=== PATIENT | female | born 1975 | race Caucasian/White ===

== ENCOUNTER 2020-12-25 06:24 | Emergency (ER) | payer MEDICAID ==
[2020-12-25] MEDS ORDERED: Sodium Chloride 0.9% 2.5 ML Syringe FLUSH PRN (06:45)
[2020-12-25] MEDS ORDERED: Ketorolac 15 MG/ML SDV IVPUSH ONE (06:45)
[2020-12-25] MEDS ORDERED: Sodium Chloride 0.9% 10 ML Syringe FLUSH PRN (06:45)
--- NOTE | 2020-12-25 06:54 | EDM.PDOC ---
<Elpidio Hastings - Last Filed: 12/25/20 07:07> ED HPI GENERAL MEDICAL PROBLEM - General Chief Complaint: Chest Pain Stated Complaint: CHEST PAIN Time Seen by Provider: 12/25/20 06:27 - History of Present Illness INITIAL COMMENTS - FREE TEXT/NARRATIVE: HISTORY AND PHYSICAL: History of present illness: This is a 45-year-old female with history significant for hypercholesterolemia, asthma, negative family history for CAD, negative diabetes, negative tobacco, negative prior CAD, negative hypertension, who presents to the ER today complaining of midsternal chest squeezing x1 day. Patient reports that starting approximately noon yesterday she started experiencing discomfort in her chest. Patient reports she had associated episodes of nausea, diaphoresis, shortness of breath and pain to her left shoulder. 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 Patient reports that pain has been constant since noon yesterday and increases with movement of her torso and arms. Patient reports no change in pain with ambulation/exertion, coughing, deep inspiration, meals. Patient reports that the pain is not relieved with rest. Patient reports that the pain is just there all the time for the last 18 hours. Patient denies any recent fevers, shakes, chills, nausea, vomiting, diarrhea, cough, URI symptoms, dysuria, frequency, urgency, abdominal pain. Patient does complain of a rash noted to her left shoulder but she reports the rash itself is not painful nor itchy. She reports that she noticed a rash yesterday. Patient denies any history of hypertension, diabetes, liver, lung, kidney problems. Patient denies any prior abdominal or chest surgeries in the past. Patient denies any tobacco use or drug use. Patient reports he drinks approximately 3-4 beers an evening. Patient is allergic to iodine. Patient denies any prior cardiac work-up. Review of systems: As per history of present illness and below otherwise all systems reviewed and negative. Past medical history: As per history of present illness and as reviewed below otherwise noncontributory. Surgical history: As per history of present illness and as reviewed below otherwise noncontributory. Social history: No reported history of drug or alcohol abuse. Family history: As per history of present illness and as reviewed below otherwise noncontributory. Physical exam: This patient was seen and evaluated during the 2019 SARS-CoV-2 novel coronavirus pandemic period. Community viral transmission is ongoing at time of this encounter and the emergency department is operating under pandemic response procedures. Constitutional: Patient is oriented to person, place, and time. Appears well- developed and well-nourished. No distress. HEENT: Moist mucous membranes Head: Normocephalic and atraumatic Eyes: Right eye exhibits no discharge. Left eye exhibits no discharge. No scleral icterus Neck: Normal range of motion. No tracheal deviation present. Cardiovascular: Normal rate and regular rhythm. Pulmonary: Effort normal, no respiratory distress. No wheezing rales or rhonchi. Abdominal: No distention Musculoskeletal: Normal range of motion. No calf tenderness. No Homans' sign. Neurologic: Alert and oriented to person, place and time. Skin: [place], warm and dry. Psychiatric: Normal mood and affect. Behavior is normal. Judgment and thought content normal. Nursing note and vital signs have been reviewed Patient's ER physical exam is significant for some reproducible tenderness to palpation to her anterior chest wall. Patient does have reproducible chest pain when I ask her to sit up so that I can listen to her lungs. Patient does have some discomfort when she takes deep breath in. Diagnostics: EKG: As interpreted by ER physician: Venkata: Nonspecific ST-T wave abnormalities Normal axis No evidence of ST elevation [place] Normal sinus rhythm heart rate of 94 Chest Xray: Normal cardiac silhouette No infiltrates or effusions identified. No PTX No evidence of acute bony fracture. As interpreted by ER MD: Venkata CBC, CMP, troponin, D-dimer. Therapeutics: Toradol 15 mg IV Assessment and plan: This is a 45-year-old female with a history significant for hypercholesterolemia who presents ER today with atypical chest pain that started yesterday at noon time. Patient's presentation is not highly consistent with cardiac origin of her chest pain. Patient will have EKG which is unremarkable. Patient will have chest x-ray as well as cardiac labs drawn. 7 AM: Patient will be signed out to oncoming physician for final disposition. Heart Score: History: 1 (2, Highly Suspicious; 1, Moderate Suspicious; 0: Slightly Suspicious) EK (2, Significant ST depression; 1: Non specific repolarization disturbance; 0, Normal) Age: 1 (2, = 65; 1: 45-65; 0, =45) Risk factors: 1 (2, =3 risk factors or history of atherosclerotic disease; 1, 1-2 risk factors; 0, no risk factors) Risk Factors include hypercholesterolemia, HTN, DM, smoking, family history, obesity Troponin: P (2, (=3x normal limit; 1, 1-3 x normal limit; 0 = normal limit) Total Heart Score: 3P Management Scores 0-3: 0.9-1.7% risk of adverse cardiac event. In the HEART Score study, these patients were discharged (0.99% in the retrospective study, 1.7% in the prospective study) Scores 4-6: 12-16.6% risk of adverse cardiac event. In the HEART Score study, these patients were admitted to the hospital. (11.6% retrospective, 16.6% prospective) Scores =7: 50-65% risk of adverse cardiac event. In the HEART Score study, these patients were candidates for early invasive measures. (65.2% retrospective, 50.1% prospective) Definitive disposition and diagnosis as appropriate pending reevaluation and review of above. chest Pain Score (Numeric/FACES): 10 - Related Data Allergies Allergy/AdvReac Type Severity Reaction Status Date / Time povidone-iodine Allergy Rash Verified 12/25/20 06:34 [From Betadine] soap [From Betadine] Allergy Rash Verified 12/25/20 06:34 strawberry [[place]] Allergy Respiratory Verified 12/25/20 06:34 Distress Home Meds: Home Meds Albuterol Sulfate [Albuterol Sulfate HFA] 18 gm IH Q4H PRN #1 [id number] 02/04/15 [Rx] Phentermine HCl PO DAILY 12/25/20 [History] atorvaSTATin [Lipitor] 10 mg PO DAILY 12/25/20 [History] Past Medical History Cardiovascular History: Reports: High Cholesterol Respiratory History: Reports: Asthma 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 - Infectious Disease History Infectious Disease History: Reports: Novel Coronavirus Social & Family History - Tobacco Use Tobacco Use Status *Q: Never Tobacco User - Alcohol Use Days Per Week of Alcohol Use: 7 Number of Drinks Per Day: 4 Total Drinks Per Week: 28 - Recreational Drug Use Recreational Drug Use: No ED ROS GENERAL - Review of Systems Review Of Systems: See Below ED EXAM, GENERAL - Physical Exam Exam: See Below Departure - Departure Disposition: Home, Self-Care 01 Clinical Impression: Chest pain - Discharge Information Instructions: Nonspecific Chest Pain, Adult Referrals: Windy Hunt NP [Primary Care Provider] - 3 Days Forms: ED Department Discharge Additional Instructions: We were not able to find a provable cause of your chest pain today. Your EKG and other heart tests were normal. Because of this and other factors in your history we can calculate the odds that this pain is coming from blocked arteries in your heart as less than 1.7%. The labs evaluating your liver and pancreas as well as your cell counts were also normal. Your chest x-ray was normal. Because your screening test for blood clots was abnormal you had a CT scan of your chest. This showed that you do NOT have any blood clots in your lungs and it show no signs of infection or other disease process in your lung tissue. I recommend that you try and rest over the weekend. Please be sure to follow-up with your primary care doctor. If your symptoms worsen, or you develop any new symptoms that concern you, then please call your doctor right away or return to the ER. The following information is given to patients seen in the emergency department who are being discharged to home. This information is to outline your options for follow-up care. We provide all patients seen in our emergency department with a follow-up referral. The need for follow-up, as well as the timing and circumstances, are variable depending upon the specifics of your emergency department visit. If you don't have a primary care physician on staff, we will provide you with a referral. We always advise you to contact your personal physician following an emergency department visit to inform them of the circumstance of the visit and for follow-up with them and/or the need for any referrals to a consulting specialist. The emergency department will also refer you to a specialist when appropriate. This referral assures that you have the opportunity for follow-up care with a specialist. All of these measure are taken in an effort to provide you with optimal care, which includes your follow-up. Under all circumstances we always encourage you to contact your private physician who remains a resource for coordinating your care. When calling for follow-up care, please make the office aware that this follow-up is from your recent emergency room visit. If for any reason you are refused follow-up, please contact the [facility] Emergency Department at and asked to speak to the emergency department charge nurse. Sepsis Event Note (ED) - Evaluation Sepsis Screening Result: No Definite Risk <Clemente Javier - Last Filed: 12/25/20 10:37> Course - Vital Signs Last Recorded V/S: Last Vital Signs Temp 98 F 12/25/20 06:36 Pulse 89 12/25/20 10:10 Resp 18 12/25/20 07:28 BP 129/83 12/25/20 10:10 Pulse Ox 93 L 12/25/20 10:10 - Orders/Labs/Meds Orders: Active Orders 24 hr Category Date Time Status EKG Documentation Completion [RC] STAT Care 12/25/20 06:50 Active Lactated Ringers [Ringers, Lactated] 1,000 ml Med 12/25/20 10:00 Active IV .BOLUS Sodium Chloride 0.9% [Saline Flush] Med 12/25/20 06:45 Active 10 ml FLUSH ASDIRECTED PRN Sodium Chloride 0.9% [Saline Flush] Med 12/25/20 06:45 Active 2.5 ml FLUSH ASDIRECTED PRN Saline Lock Insert [OM.PC] Stat Oth 12/25/20 06:46 Ordered Medication Orders Lactated Ringer's (Ringers, Lactated) 1,000 mls @ 999 mls/hr IV .BOLUS FREDDY Last Admin: 12/25/20 09:51 Dose: 999 mls/hr Documented by: ELLIOT Sodium Chloride (Sodium Chloride 0.9% 10 Ml Syringe) 10 ml FLUSH ASDIRECTED PRN PRN Reason: Keep Vein Open Last Admin: 12/25/20 06:53 Dose: 10 ml Documented by: RAMONA Sodium Chloride (Sodium Chloride 0.9% 2.5 Ml Syringe) 2.5 ml FLUSH ASDIRECTED PRN PRN Reason: Keep Vein Open Last Admin: 12/25/20 06:54 Dose: 2.5 ml Documented by: RAMONA Labs: Laboratory Tests 12/25/20 12/25/20 12/25/20 Range/Units 06:28 06:28 06:28 WBC 6.67 (4.0-11.0) K/uL RBC 4.14 L (4.30-5.90) M/uL Hgb 13.8 (12.0-16.0) g/dL Hct 38.7 (36.0-46.0) % MCV 93.5 (80.0-98.0) fL MCH 33.3 H (27.0-32.0) pg MCHC 35.7 (31.0-37.0) g/dL RDW Std Deviation 42.4 (28.0-62.0) fl RDW Coeff of Barb 13 (11.0-15.0) % Plt Count 341 (150-400) K/uL MPV 9.40 (7.40-12.00) fL Neut % (Auto) 25.9 L (48.0-80.0) % Lymph % (Auto) 62.2 H (16.0-40.0) % [place] % (Auto) 7.9 (0.0-15.0) % Eos % (Auto) 3.1 (0.0-7.0) % Baso % (Auto) 0.9 (0.0-1.5) % Neut # (Auto) 1.7 (1.4-5.7) K/uL Lymph # (Auto) 4.2 H (0.6-2.4) K/uL [place] # (Auto) 0.5 (0.0-0.8) K/uL Eos # (Auto) 0.2 (0.0-0.7) K/uL Baso # (Auto) 0.1 (0.0-0.1) K/uL Nucleated RBC % 0.0 /100WBC Nucleated RBCs # 0 K/uL D-Dimer, Quantitative 0.58 H (0.0-0.50) mg/L FEU Sodium 142 (136-145) mmol/L Potassium 3.5 (3.5-5.1) mmol/L Chloride 107 (98-107) mmol/L Carbon Dioxide 24.0 (21.0-32.0) mmol/L BUN 12 (7.0-18.0) mg/dL Creatinine 0.9 (0.6-1.0) mg/dL Est Cr Clr Drug Dosing 61.12 mL/min Estimated GFR (MDRD) > 60.0 ml/min Glucose 111 H (74-106) mg/dL Calcium 8.3 L (8.5-10.1) mg/dL Total Bilirubin 0.9 (0.2-1.0) mg/dL AST 11 L (15-37) IU/L ALT 22 (14-63) IU/L Alkaline Phosphatase 69 (46-116) U/L Troponin I < 0.050 (0.000-0.056) ng/mL Total Protein 7.3 (6.4-8.2) g/dL Albumin 3.6 (3.4-5.0) g/dL Globulin 3.7 (2.6-4.0) g/dL Albumin/Globulin Ratio 1.0 (0.9-1.6) Lipase (73-393) U/L 12/25/20 12/25/20 Range/Units 08:59 08:59 WBC (4.0-11.0) K/uL RBC (4.30-5.90) M/uL Hgb (12.0-16.0) g/dL Hct (36.0-46.0) % MCV (80.0-98.0) fL MCH (27.0-32.0) pg MCHC (31.0-37.0) g/dL RDW Std Deviation (28.0-62.0) fl RDW Coeff of Barb (11.0-15.0) % Plt Count (150-400) K/uL MPV (7.40-12.00) fL Neut % (Auto) (48.0-80.0) % Lymph % (Auto) (16.0-40.0) % [place] % (Auto) (0.0-15.0) % Eos % (Auto) (0.0-7.0) % Baso % (Auto) (0.0-1.5) % Neut # (Auto) (1.4-5.7) K/uL Lymph # (Auto) (0.6-2.4) K/uL [place] # (Auto) (0.0-0.8) K/uL Eos # (Auto) (0.0-0.7) K/uL Baso # (Auto) (0.0-0.1) K/uL Nucleated RBC % /100WBC Nucleated RBCs # K/uL D-Dimer, Quantitative (0.0-0.50) mg/L FEU Sodium (136-145) mmol/L Potassium (3.5-5.1) mmol/L Chloride (98-107) mmol/L Carbon Dioxide (21.0-32.0) mmol/L BUN (7.0-18.0) mg/dL Creatinine (0.6-1.0) mg/dL Est Cr Clr Drug Dosing mL/min Estimated GFR (MDRD) ml/min Glucose (74-106) mg/dL Calcium (8.5-10.1) mg/dL Total Bilirubin (0.2-1.0) mg/dL AST (15-37) IU/L ALT (14-63) IU/L Alkaline Phosphatase (46-116) U/L Troponin I < 0.050 (0.000-0.056) ng/mL Total Protein (6.4-8.2) g/dL Albumin (3.4-5.0) g/dL Globulin (2.6-4.0) g/dL Albumin/Globulin Ratio (0.9-1.6) Lipase 85 (73-393) U/L Meds: Medications Generic Name Dose Route Start Last Admin Trade Name Freq PRN Reason Stop Dose Admin Lactated Ringer's 1,000 mls @ 999 mls/hr 12/25/20 10:00 12/25/20 09:51 Ringers, Lactated IV 999 mls/hr .BOLUS FREDDY Administration Sodium Chloride 10 ml 12/25/20 06:45 12/25/20 06:53 Sodium Chloride 0.9% 10 Ml Syringe FLUSH 10 ml ASDIRECTED PRN Administration Keep Vein Open Sodium Chloride 2.5 ml 12/25/20 06:45 12/25/20 06:54 Sodium Chloride 0.9% 2.5 Ml Syringe FLUSH 2.5 ml ASDIRECTED PRN Administration Keep Vein Open Discontinued Medications Generic Name Dose Route Start Last Admin Trade Name Freq PRN Reason Stop Dose Admin Famotidine 20 mg 12/25/20 08:53 12/25/20 09:10 Famotidine 20 Mg Tab PO 12/25/20 08:54 20 mg ONETIME ONE Administration Iopamidol 69 ml 12/25/20 08:27 12/25/20 08:28 Iopamidol 755 Mg/Ml 500 Ml Multipack Bottle IVPUSH 12/25/20 08:28 69 ml ONETIME ONE Administration Ketorolac Tromethamine 15 mg 12/25/20 06:45 12/25/20 06:54 Ketorolac 15 Mg/Ml Sdv IVPUSH 12/25/20 06:46 15 mg ONETIME ONE Administration Ketorolac Tromethamine 15 mg 12/25/20 08:53 12/25/20 09:04 Ketorolac 30 Mg/Ml Sdv IVPUSH 12/25/20 08:54 15 mg ONETIME ONE Administration Morphine Sulfate 4 mg 12/25/20 07:31 12/25/20 07:41 Morphine 4 Mg/Ml Syringe IVPUSH 12/25/20 07:32 4 mg ONETIME ONE Administration Ondansetron HCl 4 mg 12/25/20 07:31 12/25/20 07:38 Ondansetron 4 Mg/2 Ml Sdv IVPUSH 12/25/20 07:32 4 mg ONETIME ONE Administration Ondansetron HCl 4 mg 12/25/20 08:49 12/25/20 09:02 Ondansetron 4 Mg/2 Ml Sdv IVPUSH 12/25/20 08:50 4 mg ONETIME ONE Administration Prochlorperazine Edisylate 10 mg 12/25/20 09:46 12/25/20 09:51 Prochlorperazine 10 Mg/2 Ml Sdv IVPUSH 12/25/20 09:47 10 mg ONETIME ONE Administration Departure - Departure Time of Disposition: 10:37 Condition: Good - Discharge Information *PRESCRIPTION DRUG MONITORING PROGRAM REVIEWED*: Not Applicable *COPY OF PRESCRIPTION DRUG MONITORING REPORT IN PATIENT JOSE LUIS: Not Applicable Sepsis Event Note (ED) - Focused Exam Vital Signs: Vital Signs Temp Pulse Resp BP Pulse Ox 12/25/20 10:10 89 129/83 93 L 12/25/20 09:40 82 127/84 95 12/25/20 09:25 83 128/84 93 L 12/25/20 09:10 87 133/93 H 91 L 12/25/20 08:40 90 131/85 92 L 12/25/20 07:55 96 124/69 94 L 12/25/20 07:40 94 117/70 94 L 12/25/20 07:28 99 18 114/69 93 L 12/25/20 06:36 98 F 96 16 117/77 96 - My Orders Last 24 Hours: My Active Orders 12/25/20 10:00 Lactated Ringers [Ringers, Lactated] 1,000 ml IV .BOLUS - Assessment/Plan Last 24 Hours: My Active Orders 12/25/20 10:00 Lactated Ringers [Ringers, Lactated] 1,000 ml IV .BOLUS Assessment:: Pt received in sign out from Dr. Hastings at 0700. Pt's pain persists at 8/10 and morphine/zofran added. D-Dimer abnormal and CTPA added as well. 0900: CTPA is negative for PE and other acute processes. Pt with persistent pain and emesis x 1 after PO. 2nd trop pending, pepcid, zofran and additional toradol ordered for sx as well. 0947: 2nd trop is negative. Pt with persistent emesis and chest pressure. Pt took 2 puffs of her albuterol inhaler without change in symptoms. Compazine and IVF added given dry mucus membranes and active emesis. Lipase added to blood work. Pt con't to deny any abd pain and given this PUD and hepatobiliary pathology is felt unlikely. WBC is normal no indication of appendicitis or diverticulitis. No indication for abd imaging at this point. Pt's initial presenting complaint of chest heaviness with anterior chest wall tenderness does not suggest aortic dissection. 1036: Pt now tolerating PO s/p compazine. VS remain good, given extensive negative work up admission not felt indicated at this point. Extensive discussion regarding unclear cause of sx was discussed and understood. Patient will f/u with her PCP.
--- NOTE | 2020-12-25 07:08 | CR ---
INDICATION: Chest pain. TECHNIQUE: Chest 1 view. COMPARISON: None. FINDINGS: No focal consolidation, pleural effusion, or pneumothorax. Normal heart size and pulmonary vascularity. The bones are unremarkable. IMPRESSION: No acute cardiopulmonary findings. Dictated by Netta Owusu MD @ 12/25/2020 7:07:[address] Netta Owusu @ Dec 25 2020 7:07AM
[2020-12-25 07:13] LABS: BLOOD UREA NITROGEN,BUN 12 mg/dL (7.0-18.0); CHLORIDE,CL 107 mmol/L (98-107); GLUCOSE RANDOM 111 mg/dL (74-106); POTASSIUM,K 3.5 mmol/L (3.5-5.1); SODIUM,NA 142 mmol/L (136-145)
[2020-12-25] MEDS ORDERED: Morphine 4 MG/ML Syringe IVPUSH ONE (07:31)
[2020-12-25] MEDS ORDERED: Ondansetron 4 MG/2 ML SDV IVPUSH ONE ×2 (07:31→08:49)
[2020-12-25] MEDS ORDERED: Iopamidol 755 MG/ML 500 ML Multipack Bottle IVPUSH ONE (08:27)
--- NOTE | 2020-12-25 08:44 | CT ---
INDICATION: Chest pain for 1 day. Elevated D-dimer. Evaluate for pulmonary embolus. TECHNIQUE: CT chest angiogram performed after IV injection of 69 mL of [id number]. FINDINGS: No pulmonary embolus. Mild atelectasis or scarring in the lungs. Tiny nodule in the right upper lobe laterally should be benign. Minimal platelike atelectasis or scarring in the lungs. Small calcifications or densely calcified small lesions in the in right thyroid likely benign. Moderately distended stomach. Remainder negative. IMPRESSION: 1. No acute disease in the chest including no evidence of pulmonary embolus. 2. Few densely calcified nonspecific lesions in the right thyroid. 3. Tiny benign nodule right lung laterally. Other findings as above. Please note that all CT scans at this facility use dose modulation, iterative reconstruction, and/or weight-based dosing when appropriate to reduce radiation dose to as low as reasonably achievable. Dictated by Christofer Antoine MD @ 12/25/2020 8:43:[address] Christofer Antoine @ Dec 25 2020 8:43AM
[2020-12-25] MEDS ORDERED: Ketorolac 30 MG/ML SDV IVPUSH ONE (08:53)
[2020-12-25] MEDS ORDERED: Famotidine 20 MG Tab PO ONE (08:53)
[2020-12-25] MEDS ORDERED: Prochlorperazine 10 MG/2 ML SDV IVPUSH ONE (09:46)
[2020-12-25] MEDS ORDERED: Lactated Ringers 1,000 ML IV SCH (10:00)
[2020-12-25 10:53] VITALS: BP 126/82; PULSE 92
== END 2020-12-25 10:56 | disposition home or self-care (01) ==
LOC: MW.ED 06:24
DX: R07.2 Precordial pain (principal); E78.00 Pure hypercholesterolemia, unspecified; J45.909 Unspecified asthma, uncomplicated; Z91.048 Other nonmedicinal substance allergy status; Z91.018 Allergy to other foods; Z79.899 Other long term (current) drug therapy
CPT/HCPCS: 36415; 71045; 71275; 80053; 83690; 84484; 85025; 85379; 93005; 96374; 96375; 96376; 99285; A9270; J0780; J1885; J2270; J2405; J7120; Q9967; 99284

== ENCOUNTER 2021-02-05 09:28 | Emergency (ER) | payer OTHER, MEDICAID ==
[2021-02-05] MEDS ORDERED: predniSONE 20 MG Tab PO ONE (10:11)
[2021-02-05] MEDS ORDERED: Orphenadrine 60 MG/2 ML Inj IM ONE (10:11)
[2021-02-05] MEDS ORDERED: Ketorolac 60 MG/2 ML SDV IM ONE (10:11)
--- NOTE | 2021-02-05 10:17 | EDM.PDOC ---
ED HPI GENERAL MEDICAL PROBLEM - General Chief Complaint: Back Pain or Injury Stated Complaint: BACKPAIN,HIP PAIN Time Seen by Provider: 02/05/21 09:51 Source of Information: Reports: Patient History Limitations: Reports: No Limitations - History of Present Illness INITIAL COMMENTS - FREE TEXT/NARRATIVE: HISTORY AND PHYSICAL: History of present illness: Patient is a 45-year-old female who presents to the emergency room with complaints of lumbar back pain that radiates into both glutes and down the right leg ending in her calf muscle x 5 days. She states while at work she is using a Alex lift when the pain started, has been doing a lot of back activity with her [employer] work. After the pain started she was seen at occupational therapy and had a lumbar x-ray. She was given a IM shot of Toradol and steroid and felt better for about 1 to 2 days but once she returned to work the pain returned and worsened in intensity. She denies any injury, trauma or falls. Denies any numbness, tingling, saddle paresthesias or weakness. No urinary or fecal incontinence. Patient denies any fever, chills, headache, change in vision, syncope or near syncope. Denies any chest pain, back pain, shortness of breath or cough. Denies any abdominal pain, nausea, vomiting, diarrhea, constipation or dysuria. Has not noted any blood in urine or stool. Patient has been eating and drinking appropriately. Review of systems: As per history of present illness and below otherwise all systems reviewed and negative. Past medical history: As per history of present illness and as reviewed below otherwise noncontributory. Surgical history: As per history of present illness and as reviewed below otherwise noncontributory. Social history: See social history for further information Family history: As per history of present illness and as reviewed below otherwise noncontributory. Physical exam: General: Well developed and well nourished. Alert and orientated x 3. Nontoxic in appearance and in no acute distress. Vital signs are stable and have been reviewed by me. Nursing notes were reviewed. HEENT: Atraumatic, normocephalic, pupils equal and reactive bilaterally, negative for conjunctival pallor or scleral icterus, mucous membranes moist, TMs normal bilaterally, throat clear, neck supple, nontender, trachea midline. No drooling or trismus noted. No meningeal signs. No hot potato voice noted. Lungs: Clear to auscultation bilaterally. No wheezes, rales, or rhonchi. Chest nontender. Normal work of breathing, no accessory muscles used. Heart: S1S2, regular rate and rhythm without overt murmur, gallops, or rubs. No JVD. No peripheral edema Abdomen: Soft, nondistended, nontender. Normoactive bowel sounds. Negative for masses or costovertebral tenderness. Skin: Intact, warm, dry. No lesions or rashes noted. Hematologic: No petechiae or purpra. Mucosa appropriate color and normal nail bed color and refill. C-spine/Back: No pinpoint vertebral tenderness upon palpation. No crepitus, step-offs or obvious deformities. Patient is ambulatory into the emergency room without difficulty or deficit. Able to rock back on heels and walk on toes. Denies any urinary or fecal incontinence. Denies any numbness, tingling or saddle paresthesia. No concerns of serious infection, fracture or cord compression, or cauda equina syndrome. Deep tendon reflexes brisk bilaterally. Extremities: Atraumatic, moves all extremities per self without difficulty or deficits, negative for cords or calf pain. Neurovascular unremarkable. Neuro: Awake, alert, oriented. Cranial nerves II through XII unremarkable. Cerebellum unremarkable. Motor and sensory unremarkable throughout. Exam nonfocal. Psychiatric: Mood and affect are appropriate. Normal thought process. Answering questions appropriately. Notes: *This patient was seen and evaluated during the 2019 SARS-CoV-2 novel coronavirus pandemic period. Community viral transmission is ongoing at time of this encounter and the emergency department is operating under pandemic response procedures. Patient is a 45-year-old female who presents to the emergency room with complaints of back pain with sciatica down the right side. She did previously have x-rays at the occupational health office which was normal. She has not had any injury, trauma or falls. She is fully ambulatory without difficulty or deficits. She was given an IM injection of Toradol and steroid while at the clinic but not sent home with any medications. She states initially after the IM injection she felt improved but as soon as she started physical activity again the pain returned and has worsened as she has been encouraged to continue working. At this time I do not feel any additional imaging is warranted. This does appear muscular/sciatic in nature. She is agreeable to Toradol and Norflex IM while here. Patient feels improved I have talked with the patient about today's findings, in addition to providing specific details for plan of care. Reassessment at the time of disposition demonstrates that the patient is in no acute distress. The patient is stable for discharge, counseling was provided and we discussed in great detail signs and symptoms that would prompt them to return to the Emergency Department. Medication, follow up and supportive care measures were reviewed and discussed. Voices understanding and is agreeable to plan of care. Denies any further questions or concerns at this time. Diagnostics: None Therapeutics: Norflex, Toradol, prednisone Prescription: Diclofenac, Flexeril, prednisone Impression: Back pain with sciatica, right Plan: 1. The medication you received today does cause drowsiness, so do not drive for the remaining day 2. When resting please lay on a flat firm surface. Limit your immobility to prevent muscle stiffness. Get up to ambulate/move around/gentle stretching multiple times throughout the day. May alternate heat and ice to the painful areas 3. Tylenol as needed for back pain. Otherwise take the prescribed Flexeril and diclofenac as directed. Diclofenac is an anti-inflammatory so do not take any additional NSAIDs with this medication, such as ibuprofen or Aleve. Flexeril as a muscle relaxant, this medication may cause drowsiness a do not take it will driving her needing to be functioning outside of the house. 4. Please follow-up with your primary care provider as we discussed. If your symptoms should worsen, new symptoms develop or any of the signs and symptoms we discussed should arise please return to the emergency room or call 911 (if needed). Definitive disposition and diagnosis as appropriate pending reevaluation and review of above. Back Pain Score (Numeric/FACES): 6 - Related Data Allergies Allergy/AdvReac Type Severity Reaction Status Date / Time hydromorphone [From Dilaudid] Allergy Other Verified 02/05/21 10:13 povidone-iodine Allergy Rash Verified 02/05/21 10:13 [From Betadine] soap [From Betadine] Allergy Rash Verified 02/05/21 10:13 strawberry [Rhame] Allergy Respiratory Verified 02/05/21 10:13 Distress Home Meds: Home Meds Albuterol Sulfate [Albuterol Sulfate HFA] 18 gm IH Q4H PRN #1 [id number] 02/04/15 [Rx] atorvaSTATin [Lipitor] 10 mg PO DAILY 12/25/20 [History] Cyclobenzaprine [Flexeril] 10 mg PO TID PRN #21 tab 02/05/21 [Rx] Diclofenac Sodium [Voltaren] 75 mg PO BIDMEALS PRN #30 tab.cr 02/05/21 [Rx] buPROPion [Wellbutrin] 75 mg PO DAILY 02/05/21 [History] predniSONE [Prednisone] 40 mg PO DAILY 4 Days #8 tablet 02/05/21 [Rx] Past Medical History Cardiovascular History: Reports: High Cholesterol Respiratory History: Reports: Asthma Other [employer] History: tubal - Infectious Disease History Infectious Disease History: Reports: Novel Coronavirus ED ROS GENERAL - Review of Systems Review Of Systems: Comprehensive ROS is negative, except as noted in HPI. ED EXAM, GENERAL - Physical Exam Exam: See Below (See dictation) Course - Vital Signs Last Recorded V/S: Last Vital Signs Temp 98 F 02/05/21 10:15 Pulse 75 02/05/21 10:15 Resp 16 02/05/21 10:15 BP 121/89 02/05/21 10:15 Pulse Ox 96 02/05/21 10:15 - Orders/Labs/Meds Meds: Medications Discontinued Medications Generic Name Dose Route Start Last Admin Trade Name Freq PRN Reason Stop Dose Admin Ketorolac Tromethamine 60 mg 02/05/21 10:11 02/05/21 10:46 Ketorolac 60 Mg/2 Ml Sdv IM 02/05/21 10:12 60 mg ONETIME ONE Administration Orphenadrine Citrate 60 mg 02/05/21 10:11 02/05/21 10:48 Orphenadrine 60 Mg/2 Ml Inj IM 02/05/21 10:12 60 mg ONETIME ONE Administration Prednisone 40 mg 02/05/21 10:11 02/05/21 10:46 Prednisone 20 Mg Tab PO 02/05/21 10:12 40 mg ONETIME ONE Administration Departure - Departure Time of Disposition: 10:51 Disposition: Home, Self-Care 01 Clinical Impression: Back pain with sciatica - Discharge Information Prescriptions: Cyclobenzaprine [Flexeril] 10 mg PO TID PRN #21 tab PRN Reason: Muscle Spasm predniSONE [Prednisone] 40 mg PO DAILY 4 Days #8 tablet Diclofenac Sodium [Voltaren] 75 mg PO BIDMEALS PRN #30 tab.cr PRN Reason: Pain Instructions: Sciatica, [id number] Referrals: Giovani Richardson MD [Primary Care Provider] - Forms: ED Department Discharge Additional Instructions: The following information is given to patients seen in the emergency department who are being discharged to home. This information is to outline your options for follow-up care. We provide all patients seen in our emergency department with a follow-up referral. The need for follow-up, as well as the timing and circumstances, are variable depending upon the specifics of your emergency department visit. If you don't have a primary care physician on staff, we will provide you with a referral. We always advise you to contact your personal physician following an emergency department visit to inform them of the circumstance of the visit and for follow-up with them and/or the need for any referrals to a consulting specialist. The emergency department will also refer you to a specialist when appropriate. T his referral assures that you have the opportunity for follow-up care with a specialist. All of these measure are taken in an effort to provide you with optimal care, which includes your follow-up. Under all circumstances we always encourage you to contact your private physician who remains a resource for coordinating your care. When calling for follow-up care, please make the office aware that this follow-up is from your recent emergency room visit. If for any reason you are refused follow-up, please contact the [facility] Emergency Department at and asked to speak to the emergency department charge nurse. [facility] [address] [place] [id number] [address] Thank you for choosing the [facility] emergency department in [place] for your medical needs today. It was a pleasure caring for you. Today you were seen in the emergency department for back pain. 1. The medication you received today does cause drowsiness, so do not drive for the remaining day 2. When resting please lay on a flat firm surface. Limit your immobility to prevent muscle stiffness. Get up to ambulate/move around/gentle stretching multiple times throughout the day. May alternate heat and ice to the painful areas 3. Tylenol as needed for back pain. Otherwise take the prescribed Flexeril and diclofenac as directed. Diclofenac is an anti-inflammatory so do not take any additional NSAIDs with this medication, such as ibuprofen or Aleve. Flexeril as a muscle relaxant, this medication may cause drowsiness a do not take it will driving her needing to be functioning outside of the house. 4. Please follow-up with your primary care provider as we discussed. If your symptoms should worsen, new symptoms develop or any of the signs and symptoms we discussed should arise please return to the emergency room or call 911 (if needed). Sepsis Event Note (ED) - Focused Exam Vital Signs: Vital Signs Temp Pulse Resp BP Pulse Ox 02/05/21 10:15 98 F 75 16 121/89 96
[2021-02-05 11:11] VITALS: BP 123/87; PULSE 84
== END 2021-02-05 11:12 | disposition home or self-care (01) ==
LOC: MW.ED 09:28
DX: M54.41 Lumbago with sciatica, right side (principal); E78.00 Pure hypercholesterolemia, unspecified; Z88.5 Allergy status to narcotic agent; Z91.018 Allergy to other foods; Z91.048 Other nonmedicinal substance allergy status; Z88.8 Allergy status to other drugs, medicaments and biological substances; Z79.899 Other long term (current) drug therapy
CPT/HCPCS: 96372; 99283; A9270; J1885; J2360

== ENCOUNTER 2021-06-15 05:36 | Emergency (ER) | payer MEDICAID ==
[2021-06-15] MEDS ORDERED: Ketorolac 30 MG/ML SDV IM STA (06:02)
[2021-06-15] MEDS ORDERED: Sodium Chloride 0.9% 10 ML Syringe FLUSH PRN ×2 (06:03→06:25)
--- NOTE | 2021-06-15 06:09 | EDM.PDOC ---
ED HPI GENERAL MEDICAL PROBLEM - General Chief Complaint: Lower Extremity Injury/Pain Stated Complaint: LEFT HIP AND LEG PAIN RADIATING TO BACK Time Seen by Provider: 06/15/21 06:03 - History of Present Illness INITIAL COMMENTS - FREE TEXT/NARRATIVE: History of present illness: [] The patient was awakened at 1 AM with severe pain in the left lower quadrant. It is in the extreme left lower quadrant pelvis and now radiates to her left flank. Because her to rock 'n' roll but she says it hurts worse when she moves. It is severe and sharp and constant and unassociated with any nausea vomiting fever chills trouble with urination or trouble with bowels. The patient has no diarrhea. The patient had an episode like this before and the last one was a kidney stone. The patient has had a tubal ligation and does not think she can be . Her periods are so irregular she cannot say where she is on her cycle. Review of systems: As per history of present illness and below otherwise all systems reviewed and negative. Past medical history: As per history of present illness and as reviewed below otherwise noncontributory. Surgical history: As per history of present illness and as reviewed below otherwise noncont ributory. Social history: No reported history of drug or alcohol abuse. Family history: As per history of present illness and as reviewed below otherwise noncontributory. Physical exam: Constitutional - well developed, well-nourished and in no acute distress HEENT - normocephalic, no evidence of trauma - external nose and mouth normal - no mass in neck and no JVD - mucosae moist EYES - full EOM, PERRL, no icterus - no evidence of inflammation, injection, or drainage Respiratory - no respiratory distress, equal bilateral expansion GI - abdomen - tender extreme LLQ but not as impressive as her pain is - no mass, organomegaly - no guard, rebound or referred tenderness Bimanual exam - No localized tenderness in uterus or adnexae and no mass except superficial fullnes in anterior wall of the lower vagina which is not tender or fluctuant. Musculoskeletal no gross deformity of long bones or joints - no tenderness, swelling or edema Neurologic - Alert and oriented times four - CN II-XII grossly intact - motor sensory and coordination symmetrically normal Psychiatric - appropriate mood and affect with normal thought content Hematologic - No petechiae or purpura - mucosa appropriate color and sclera not pale - normal nail bed color and refill Integument - no rash or evidence of trauma - normal turgor Diagnostics: [] Therapeutics: [] Impression: [] Plan: [] Definitive disposition and diagnosis as appropriate pending reevaluation and review of above. left hip Pain Score (Numeric/FACES): 10 - Related Data Allergies Allergy/AdvReac Type Severity Reaction Status Date / Time povidone-iodine Allergy Rash Verified 06/15/21 05:46 [From Betadine] soap [From Betadine] Allergy Rash Verified 06/15/21 05:46 strawberry [Enigma] Allergy Respiratory Verified 06/15/21 05:46 Distress Home Meds: Home Meds Albuterol Sulfate [Albuterol Sulfate HFA] 18 gm IH Q4H PRN #1 [id number].aer.[id number] 02/04/15 [Rx] atorvaSTATin [Lipitor] 10 mg PO DAILY 12/25/20 [History] Cyclobenzaprine [Flexeril] 10 mg PO TID PRN #21 tab 02/05/21 [Rx] Diclofenac Sodium [Voltaren] 75 mg PO BIDMEALS PRN #30 tab.cr 02/05/21 [Rx] buPROPion [Wellbutrin] 75 mg PO DAILY 02/05/21 [History] predniSONE [Prednisone] 40 mg PO DAILY 4 Days #8 tablet 02/05/21 [Rx] Acetaminophen/oxyCODONE [Percocet 325-10 MG] 1 - 2 tab PO Q6H PRN #20 tab 06/15/21 [Rx] diazePAM [Valium] 5 mg PO TID PRN #15 tab 06/15/21 [Rx] Past Medical History Cardiovascular History: Reports: High Cholesterol Respiratory History: Reports: Asthma Gastrointestinal History: Reports: None Genitourinary History: Reports: None PLANER SETTER History: Reports: None Other PLANER SETTER History: tubal Musculoskeletal History: Reports: None Neurological History: Reports: Migraines Psychiatric History: Reports: None Endocrine/Metabolic History: Reports: None Insulin Pump Model and Quarter Seamer: N/A Hematologic History: Reports: None Immunologic History: Reports: None Oncologic (Cancer) History: Reports: None Dermatologic History: Reports: None - Infectious Disease History Infectious Disease History: Reports: Novel Coronavirus - Past Surgical History Female Surgical History: Reports: Tubal Ligation Musculoskeletal Surgical History: Reports: ORIF, Other (See Below) Other Musculoskeletal Surgeries/Procedures:: left arm surgery. left hip bone grafting Social & Family History - Caffeine Use Caffeine Use: Reports: None - Recreational Drug Use Recreational Drug Use: No ED ROS GENERAL - Review of Systems Review Of Systems: Comprehensive ROS is negative, except as noted in HPI. ED EXAM, GENERAL - Physical Exam Exam: See Below Free Text/Narrative:: My physical exam is in the HPI Course - Vital Signs Last Recorded V/S: Last Vital Signs Temp 36.6 C 06/15/21 05:45 Pulse 74 06/15/21 09:44 Resp 15 06/15/21 09:44 BP 136/94 H 06/15/21 09:44 Pulse Ox 97 06/15/21 09:44 - Orders/Labs/Meds Orders: Active Orders 24 hr Category Date Time Status Communication Order [RC] STAT Care 06/15/21 06:08 Active Retroperitoneal Ltd [US] Stat Exams 06/15/21 10:21 Taken Sodium Chloride 0.9% [Saline Flush] Med 06/15/21 06:03 Active 10 ml FLUSH ASDIRECTED PRN Sodium Chloride 0.9% [Saline Flush] Med 06/15/21 06:25 Active 10 ml FLUSH ASDIRECTED PRN Sodium Chloride 0.9% [Saline Flush] Med 06/15/21 06:03 Active 2.5 ml FLUSH ASDIRECTED PRN Sodium Chloride 0.9% [Saline Flush] Med 06/15/21 06:25 Active 2.5 ml FLUSH ASDIRECTED PRN Saline Lock Insert [OM.PC] Stat Oth 06/15/21 06:03 Ordered Saline Lock Insert [OM.PC] Stat Oth 06/15/21 06:25 Ordered Medication Orders Sodium Chloride (Sodium Chloride 0.9% 10 Ml Syringe) 10 ml FLUSH ASDIRECTED PRN PRN Reason: Keep Vein Open Last Admin: 06/15/21 07:24 Dose: 10 ml Documented by: ARRON Sodium Chloride (Sodium Chloride 0.9% 2.5 Ml Syringe) 2.5 ml FLUSH ASDIRECTED PRN PRN Reason: Keep Vein Open Last Admin: 06/15/21 07:25 Dose: 2.5 ml Documented by: Admin: 06/15/21 07:24 Dose: 2.5 ml Documented by: ARRON Sodium Chloride (Sodium Chloride 0.9% 10 Ml Syringe) 10 ml FLUSH ASDIRECTED PRN PRN Reason: Keep Vein Open Last Admin: 06/15/21 07:24 Dose: 10 ml Documented by: ARRON Sodium Chloride (Sodium Chloride 0.9% 2.5 Ml Syringe) 2.5 ml FLUSH ASDIRECTED PRN PRN Reason: Keep Vein Open Last Admin: 06/15/21 07:25 Dose: 2.5 ml Documented by: ARRON Labs: Laboratory Tests 06/15/21 06/15/21 06/15/21 Range/Units 06:16 06:16 06:16 WBC 7.69 (4.0-11.0) K/uL RBC 4.28 L (4.30-5.90) M/uL Hgb 14.1 (12.0-16.0) g/dL Hct 39.8 (36.0-46.0) % MCV 93.0 (80.0-98.0) fL MCH 32.9 H (27.0-32.0) pg MCHC 35.4 (31.0-37.0) g/dL RDW Std Deviation 42.5 (28.0-62.0) fl RDW Coeff of Barb 13 (11.0-15.0) % Plt Count 275 (150-400) K/uL MPV 9.50 (7.40-12.00) fL Neut % (Auto) 47.3 L (48.0-80.0) % Lymph % (Auto) 41.2 H (16.0-40.0) % [place] % (Auto) 8.5 (0.0-15.0) % Eos % (Auto) 2.6 (0.0-7.0) % Baso % (Auto) 0.4 (0.0-1.5) % Neut # (Auto) 3.6 (1.4-5.7) K/uL Lymph # (Auto) 3.2 H (0.6-2.4) K/uL [place] # (Auto) 0.7 (0.0-0.8) K/uL Eos # (Auto) 0.2 (0.0-0.7) K/uL Baso # (Auto) 0.0 (0.0-0.1) K/uL Nucleated RBC % 0.0 /100WBC Nucleated RBCs # 0 K/uL Sodium 139 (136-145) mmol/L Potassium 4.1 (3.5-5.1) mmol/L Chloride 104 (98-107) mmol/L Carbon Dioxide 21.5 (21.0-32.0) mmol/L BUN 16 (7.0-18.0) mg/dL Creatinine 0.9 (0.6-1.0) mg/dL Est Cr Clr Drug Dosing 61.12 mL/min Estimated GFR (MDRD) > 60.0 ml/min Glucose 110 H (74-106) mg/dL Calcium 8.2 L (8.5-10.1) mg/dL HCG, Qual NEGATIVE (NEG) Urine Color Urine Appearance Urine pH (5.0-8.0) Ur Specific [place] (1.001-1.035) Urine Protein (NEGATIVE) mg/dL Urine Glucose (UA) (NEGATIVE) mg/dL Urine Ketones (NEGATIVE) mg/dL Urine Occult Blood (NEGATIVE) Urine Nitrite (NEGATIVE) Urine Bilirubin (NEGATIVE) Urine Urobilinogen (<2.0) EU/dL Ur Leukocyte Esterase (NEGATIVE) Urine RBC (0-2/HPF) Urine WBC (0-5/HPF) Ur Epithelial Cells (NONE-FEW) Urine Bacteria (NEGATIVE) 06/15/21 Range/Units 06:20 WBC (4.0-11.0) K/uL RBC (4.30-5.90) M/uL Hgb (12.0-16.0) g/dL Hct (36.0-46.0) % MCV (80.0-98.0) fL MCH (27.0-32.0) pg MCHC (31.0-37.0) g/dL RDW Std Deviation (28.0-62.0) fl RDW Coeff of Barb (11.0-15.0) % Plt Count (150-400) K/uL MPV (7.40-12.00) fL Neut % (Auto) (48.0-80.0) % Lymph % (Auto) (16.0-40.0) % [place] % (Auto) (0.0-15.0) % Eos % (Auto) (0.0-7.0) % Baso % (Auto) (0.0-1.5) % Neut # (Auto) (1.4-5.7) K/uL Lymph # (Auto) (0.6-2.4) K/uL [place] # (Auto) (0.0-0.8) K/uL Eos # (Auto) (0.0-0.7) K/uL Baso # (Auto) (0.0-0.1) K/uL Nucleated RBC % /100WBC Nucleated RBCs # K/uL Sodium (136-145) mmol/L Potassium (3.5-5.1) mmol/L Chloride (98-107) mmol/L Carbon Dioxide (21.0-32.0) mmol/L BUN (7.0-18.0) mg/dL Creatinine (0.6-1.0) mg/dL Est Cr Clr Drug Dosing mL/min Estimated GFR (MDRD) ml/min Glucose (74-106) mg/dL Calcium (8.5-10.1) mg/dL HCG, Qual (NEG) Urine Color YELLOW Urine Appearance SLT CLOUDY Urine pH 7.0 (5.0-8.0) Ur Specific [place] 1.010 (1.001-1.035) Urine Protein NEGATIVE (NEGATIVE) mg/dL Urine Glucose (UA) NEGATIVE (NEGATIVE) mg/dL Urine Ketones NEGATIVE (NEGATIVE) mg/dL Urine Occult Blood NEGATIVE (NEGATIVE) Urine Nitrite NEGATIVE (NEGATIVE) Urine Bilirubin NEGATIVE (NEGATIVE) Urine Urobilinogen 0.2 (<2.0) EU/dL Ur Leukocyte Esterase TRACE H (NEGATIVE) Urine RBC 0-1 (0-2/HPF) Urine WBC 0-2 (0-5/HPF) Ur Epithelial Cells MODERATE (NONE-FEW) Urine Bacteria FEW (NEGATIVE) Meds: Medications Generic Name Dose Route Start Last Admin Trade Name Freq PRN Reason Stop Dose Admin Sodium Chloride 10 ml 06/15/21 06:03 06/15/21 07:24 Sodium Chloride 0.9% 10 Ml Syringe FLUSH 10 ml ASDIRECTED PRN Administration Keep Vein Open Sodium Chloride 2.5 ml 06/15/21 06:03 06/15/21 07:25 Sodium Chloride 0.9% 2.5 Ml Syringe FLUSH 2.5 ml ASDIRECTED PRN Administration Keep Vein Open Sodium Chloride 10 ml 06/15/21 06:25 06/15/21 07:24 Sodium Chloride 0.9% 10 Ml Syringe FLUSH 10 ml ASDIRECTED PRN Administration Keep Vein Open Sodium Chloride 2.5 ml 06/15/21 06:25 06/15/21 07:25 Sodium Chloride 0.9% 2.5 Ml Syringe FLUSH 2.5 ml ASDIRECTED PRN Administration Keep Vein Open Discontinued Medications Generic Name Dose Route Start Last Admin Trade Name [place] PRN Reason Stop Dose Admin Fentanyl 50 mcg 06/15/21 10:24 06/15/21 10:30 Fentanyl 50 Mcg/Ml Sdv IVPUSH 06/15/21 10:25 50 mcg ONETIME ONE Administration Hydromorphone HCl 1 mg 06/15/21 06:25 06/15/21 06:44 Hydromorphone 1 Mg/Ml Syringe IVPUSH 06/15/21 06:26 1 mg ONETIME ONE Administration Hydromorphone HCl 0.5 mg 06/15/21 07:50 06/15/21 07:56 Hydromorphone 1 Mg/Ml Syringe IVPUSH 06/15/21 07:51 0.5 mg ONETIME ONE Administration Sodium Chloride 1,000 mls @ 1,000 mls/hr 06/15/21 06:26 06/15/21 06:44 Normal Saline IV 06/15/21 07:25 1,000 mls/hr .Bolus ONE Administration Ketorolac Tromethamine 30 mg 06/15/21 06:02 06/15/21 06:10 Ketorolac 30 Mg/Ml Sdv IM 06/15/21 06:03 30 mg NOW STA Administration - Re-Assessments/Exams Free Text/Narrative Re-Assessment/Exam: 06/15/21 07:46 Patient reassessed. Pain is no better-CT was not helpful. Plan to rule out ovarian torsion. Ultrasound will be ordered. 06/15/21 07:51 Free Text/Narrative Re-Assessment/Exam: 06/15/21 10:22 Pain unrelieved - exactly like completely obstructing stone in past - no recent heay lifting or muscle strain - Palpation reveals no groin mass with and without valsalva, tenderness not increased with active straight leg raise during palpation. 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 Departure - Departure Time of Disposition: 12:19 Disposition: Home, Self-Care 01 Condition: Good Clinical Impression: Left lower quadrant pain - Discharge Information Prescriptions: Acetaminophen/oxyCODONE [Percocet 325-10 MG] 1 - 2 tab PO Q6H PRN #20 tab PRN Reason: Pain (Severe 7-10) diazePAM [Valium] 5 mg PO TID PRN #15 tab PRN Reason: Pain (Severe 7-10) Instructions: Abdominal Pain, Adult, [id number] Referrals: Giovani Richardson MD [Primary Care Provider] - Forms: ED Department Discharge Additional Instructions: Your diagnosis at this point is left lower quadrant pain. Rest and use pain medication to take the edge off it. If worse, associated with fever or unexplained additional symptoms, return. Otherwise make appointment with surgery for colonoscopy, ICE CREAM CHEF for formal pelvic exam, and family practice for follow-up and possible additional referral. On bimanual pelvic exam there seems to the emergency physician to be a a fullness in the anterior wall of the vagina which is not tender, not causing your pain, and should be evaluated by your family practice doctor or Hazardous Material Technician to see if it is just a normal finding or has any significance at all. [facility] - General Surgery Professional Building [address] [place] [address], [address] [place] [address] [facility] [address] [place] [id number] [facility] [address] [place] [id number] [facility] [address] [place] [id number] [id number] The following information is given to patients seen in the emergency department who are being discharged to home. This information is to outline your options for follow-up care. We provide all patients seen in our emergency department with a follow-up referral. The need for follow-up, as well as the timing and circumstances, are variable depending upon the specifics of your emergency department visit. If you don't have a primary care physician on staff, we will provide you with a referral. We always advise you to contact your personal physician following an emergency department visit to inform them of the circumstance of the visit and for follow-up with them and/or the need for any referrals to a consulting specialist. The emergency department will also refer you to a specialist when appropriate. This referral assures that you have the opportunity for follow-up care with a specialist. All of these measure are taken in an effort to provide you with optimal care, which includes your follow-up. Sepsis Event Note (ED) - Evaluation Sepsis Screening Result: No Definite Risk - Focused Exam Vital Signs: Vital Signs Temp Pulse Resp BP Pulse Ox 06/15/21 09:44 74 15 136/94 H 97 06/15/21 05:45 36.6 C 92 18 146/105 H 97 - My Orders Last 24 Hours: My Active Orders 06/15/21 06:03 Sodium Chloride 0.9% [Saline Flush] 10 ml FLUSH ASDIRECTED PRN Sodium Chloride 0.9% [Saline Flush] 2.5 ml FLUSH ASDIRECTED PRN Saline Lock Insert [OM.PC] Stat 06/15/21 06:08 Communication Order [RC] STAT 06/15/21 06:25 Sodium Chloride 0.9% [Saline Flush] 10 ml FLUSH ASDIRECTED PRN Sodium Chloride 0.9% [Saline Flush] 2.5 ml FLUSH ASDIRECTED PRN Saline Lock Insert [OM.PC] Stat 06/15/21 10:21 [facility] [US] Stat - Assessment/Plan Last 24 Hours: My Active Orders 06/15/21 06:03 Sodium Chloride 0.9% [Saline Flush] 10 ml FLUSH ASDIRECTED PRN Sodium Chloride 0.9% [Saline Flush] 2.5 ml FLUSH ASDIRECTED PRN Saline Lock Insert [OM.PC] Stat 06/15/21 06:08 Communication Order [RC] STAT 06/15/21 06:25 Sodium Chloride 0.9% [Saline Flush] 10 ml FLUSH ASDIRECTED PRN Sodium Chloride 0.9% [Saline Flush] 2.5 ml FLUSH ASDIRECTED PRN Saline Lock Insert [OM.PC] Stat 06/15/21 10:21 [facility] [US] Stat
[2021-06-15] MEDS ORDERED: Sodium Chloride 0.9% 2.5 ML Syringe FLUSH PRN (06:25)
[2021-06-15] MEDS ORDERED: HYDROmorphone 1 MG/ML Syringe IVPUSH ONE ×2 (06:25→07:50)
[2021-06-15] MEDS ORDERED: Sodium Chloride 0.9% 1,000 ML IV ONE (06:26)
[2021-06-15 06:45] LABS: BLOOD UREA NITROGEN,BUN 16 mg/dL (7.0-18.0); CARBON DIOXIDE,CO2 21.5 mmol/L (21.0-32.0); CHLORIDE,CL 104 mmol/L (98-107); GLUCOSE RANDOM 110 mg/dL (74-106); POTASSIUM,K 4.1 mmol/L (3.5-5.1); SODIUM,NA 139 mmol/L (136-145)
[2021-06-15] MEDS: Sodium Chloride 0.9% 2.5 ML Syringe FLUSH PRN ×2 (07:24→07:25)
--- NOTE | 2021-06-15 07:41 | CT ---
INDICATION: Left lower quadrant abdominal pain; left flank pain. COMPARISON: None. TECHNIQUE: CT abdomen and pelvis without intravenous or oral contrast; coronal and sagittal reformats. FINDINGS: No abnormal intra pulmonary nodular densities through the lung bases .no evidence of pleural effusion. Normal size cardiac silhouette without any evidence of pericardial effusion. No focal hepatic or splenic pathology. No pancreatic pathology. Gallbladder is unremarkable. No adrenal pathology. No kidney stones or obstructive uropathy .no retroperitoneal lymphadenopathy .no evidence of abdominal or pelvic ascites. No pneumoperitoneum or intestinal obstruction. Normal appendix. Diverticulosis sigmoid colon without any CT evidence of diverticulitis or abscess. The cause for the patient`s left lower quadrant abdominal pain and left flank pain is not evident on the CT study. IMPRESSION: Negative CT abdomen and pelvis without intravenous or oral contrast. Please note that all CT scans at this facility use dose modulation, iterative reconstruction, and/or weight-based dosing when appropriate to reduce radiation dose to as low as reasonably achievable. Dictated by Rosalee Bauer MD @ 06/15/2021 7:38:32 AM (Electronically Signed)
--- NOTE | 2021-06-15 09:55 | US ---
INDICATION: Pelvic pain. COMPARISON: CT. TECHNIQUE: Routine sonographic evaluation of the female pelvis via transabdominal and transvaginal approach. FINDINGS: The uterus measures 10.2 x 5.6 x 5.1 cm. No intrauterine mass or fibroid. The endometrial stripe is at the upper limits of normal in thickness measuring 13 mm. There is a tiny cystic lesion of the posterior mid endometrium, likely of no clinical consequence. The lower uterine segment and cervix are unremarkable. - The right ovary measures 1.9 x 1.4 x 1.0 cm. The left ovary measures 2.4 x 3.0 x 2.0 cm. There are benign normal appearing follicles in both ovaries. Probable collapsing follicle or cyst in the left ovary. No suspicious or aggressive ovarian or adnexal mass. Normal vascular waveforms in both ovaries. IMPRESSION: 1. No acute findings in the pelvis. No specific ultrasound abnormality to explain the patient`s reported pain. 2. Probable collapsing cyst or follicle in the left ovary. 3. No evidence of torsion. Dictated by Danny Sagastume MD @ 06/15/2021 9:52:44 AM Dictated by: Danny Sagastume MD @ 06/15/2021 09:52:52 (Electronically Signed)
[2021-06-15] MEDS ORDERED: fentaNYL 50 MCG/ML SDV IVPUSH ONE (10:24)
--- NOTE | 2021-06-15 12:38 | US ---
INDICATION: Left flank pain. COMPARISON: CT abdomen and pelvis without intravenous contrast June 15, 2021. TECHNIQUE: Ultrasound examination of the kidneys and bladder. FINDINGS: The right kidney is measuring 10 x 5.2 x 4.9 cm and the left kidney is measuring 11 x 5.2 x 5.3 cm . Normal echogenic pattern of the renal cortex bilaterally. Normal thickness of the renal cortex bilaterally measuring 11 mm on the right and 11mm on the left . No obstructive uropathy or perinephric pathology .pre void bladder volume is 240 cc and postvoid bladder volume is 3 cc. Bilateral ureteral jets are identified . Impression : Normal kidney and bladder ultrasound. Dictated by Rosalee Bauer MD @ 06/15/2021 12:36:43 PM (Electronically Signed)
[2021-06-15 12:39] VITALS: BP 132/97; PULSE 76
== END 2021-06-15 12:39 | disposition home or self-care (01) ==
LOC: MW.ED 05:36
DX: R10.32 Left lower quadrant pain (principal); E78.00 Pure hypercholesterolemia, unspecified; Z79.899 Other long term (current) drug therapy; Z91.018 Allergy to other foods; Z91.048 Other nonmedicinal substance allergy status; Z88.8 Allergy status to other drugs, medicaments and biological substances
CPT/HCPCS: 36415; 74176; 76775; 76856; 80048; 81001; 84703; 85025; 96372; 96374; 96375; 96376; 99284; J1170; J1885; J3010; J7030

== ENCOUNTER 2021-10-29 06:45 | Emergency (ER) | payer MEDICAID ==
[2021-10-29] MEDS ORDERED: traMADol 50 MG Tab PO ONE (07:13)
[2021-10-29 08:43] VITALS: BP 125/86; PULSE 68
== END 2021-10-29 08:44 | disposition home or self-care (01) ==
LOC: MW.ED 06:45
DX: M79.671 Pain in right foot (principal); L25.9 Unspecified contact dermatitis, unspecified cause; Z88.8 Allergy status to other drugs, medicaments and biological substances; Z91.018 Allergy to other foods; Z79.899 Other long term (current) drug therapy
CPT/HCPCS: 73630; 99283; A9270

== ENCOUNTER 2022-04-23 18:40 | Emergency (ER) | payer MEDICAID ==
[2022-04-23] MEDS ORDERED: diphenhydrAMINE 50 MG/ML SDV IM ONE (19:31)
[2022-04-23] MEDS ORDERED: predniSONE 10 MG Tab PO ONE (19:32)
[2022-04-23 20:59] VITALS: BP 125/78; PULSE 83
== END 2022-04-23 20:55 | disposition home or self-care (01) ==
LOC: MW.ED 18:40
DX: L25.9 Unspecified contact dermatitis, unspecified cause (principal); J45.909 Unspecified asthma, uncomplicated; Z91.041 Radiographic dye allergy status; Z91.048 Other nonmedicinal substance allergy status; Z91.018 Allergy to other foods; Z79.899 Other long term (current) drug therapy; Z86.16 Personal history of COVID-19
CPT/HCPCS: 96372; 99282; A9270; J1200; 99283

== ENCOUNTER 2022-07-07 09:17 | Emergency (ER) | payer MEDICAID ==
[2022-07-07 09:24] VITALS: BP 140/95; PULSE 78
[2022-07-07] MEDS ORDERED: Sodium Chloride 0.9% 10 ML Syringe FLUSH PRN (10:28)
[2022-07-07] MEDS ORDERED: Sodium Chloride 0.9% 2.5 ML Syringe FLUSH PRN (10:28)
[2022-07-07] MEDS ORDERED: Ketorolac 30 MG/ML SDV IVPUSH ONE (10:32)
[2022-07-07] MEDS ORDERED: Sodium Chloride 0.9% 1,000 ML IV ONE (10:32)
[2022-07-07] MEDS ORDERED: LORazepam 2 MG/ML SDV IVPUSH ONE (10:32)
[2022-07-07] MEDS ORDERED: Ondansetron 4 MG/2 ML SDV IVPUSH ONE (10:32)
[2022-07-07 11:26] LABS: CARBON DIOXIDE,CO2 28.5 mmol/L (21.0-32.0)
[2022-07-07 12:16] LABS: CORONAVIRUS COVID-19 NAA NEGATIVE (NEGATIVE); INFLUENZA A NAA NEGATIVE (NEGATIVE); INFLUENZA B NAA NEGATIVE (NEGATIVE)
[2022-07-07] MEDS ORDERED: methylPREDNISolone Sodium Succinate 125 MG/2 ML SDV IVPUSH ONE (12:25)
== END 2022-07-07 12:57 | disposition home or self-care (01) ==
LOC: MW.ED 09:17
DX: G44.209 Tension-type headache, unspecified, not intractable (principal); J32.9 Chronic sinusitis, unspecified; J45.909 Unspecified asthma, uncomplicated; E78.00 Pure hypercholesterolemia, unspecified; Z91.041 Radiographic dye allergy status; Z91.018 Allergy to other foods; Z91.048 Other nonmedicinal substance allergy status; Z79.899 Other long term (current) drug therapy; Z20.822 Contact with and (suspected) exposure to COVID-19
CPT/HCPCS: 0240U; 36415; 70450; 80053; 85025; 96374; 96375; 99284; J1885; J2060; J2405; J2930; J3490; J7030

== ENCOUNTER 2023-01-31 09:20 | Emergency (ER) | payer MEDICAID ==
[2023-01-31] MEDS ORDERED: Sodium Chloride 0.9% 2.5 ML Syringe FLUSH PRN (10:13)
[2023-01-31] MEDS ORDERED: Sodium Chloride 0.9% 10 ML Syringe FLUSH PRN (10:13)
[2023-01-31] MEDS ORDERED: Magnesium Sulfate/Water 2 GM in Premix Bag 1 BAG IV STA (10:20)
[2023-01-31] MEDS ORDERED: Sodium Chloride 0.9% 1,000 ML IV STA (10:20)
[2023-01-31] MEDS ORDERED: diphenhydrAMINE 50 MG/ML SDV IVPUSH STA (10:21)
[2023-01-31] MEDS ORDERED: Acetaminophen 500 MG Tab PO STA (10:21)
[2023-01-31 10:47] LABS: BASOPHILS PERCENT AUTO 0.4 % (0.0-1.5); EOSINOPHILS ABSOLUTE AUTO 0.2 K/uL (0.0-0.7); EOSINOPHILS PERCENT AUTO 2.8 % (0.0-7.0); HEMATOCRIT 43.3 % (36.0-46.0); HEMOGLOBIN 15.1 g/dL (12.0-16.0); LYMPHOCYTES ABSOLUTE AUTO 2.9 K/uL (0.6-2.4); LYMPHOCYTES PERCENT AUTO 42.4 % (16.0-40.0); MEAN CORPUSCULAR HEMOGLOBIN 32.3 pg (27.0-32.0); MEAN CORPUSCULAR HGB CONC 34.9 g/dL (31.0-37.0); MEAN CORPUSCULAR VOLUME 92.7 fL (80.0-98.0); MONOCYTES ABSOLUTE AUTO 0.5 K/uL (0.0-0.8); MONOCYTES PERCENT AUTO 7.3 % (0.0-15.0); NEUTROPHILS ABSOLUTE AUTO 3.2 K/uL (1.4-5.7); NEUTROPHILS PERCENT AUTO 47.1 % (48.0-80.0); PLATELET COUNT,PLT 317 K/uL (150-400); RED BLOOD CELL COUNT 4.67 M/uL (4.30-5.90); WHITE BLOOD CELL COUNT,WBC 6.87 K/uL (4.0-11.0)
[2023-01-31 10:59] LABS: APPEARANCE,URINE CLEAR; BILIRUBIN,URINE NEGATIVE (NEGATIVE); COLOR,URINE YELLOW; GLUCOSE,URINE NEGATIVE (NEGATIVE); KETONES,URINE NEGATIVE (NEGATIVE); LEUKOCYTE ESTERASE,URINE NEGATIVE (NEGATIVE); NITRITE,URINE NEGATIVE (NEGATIVE); OCCULT BLOOD,URINE NEGATIVE (NEGATIVE); PH,URINE 6.5 (5.0-8.0); PROTEIN,URINE NEGATIVE (NEGATIVE); UROBILINOGEN,URINE 0.2 EU/dL (<2.0)
[2023-01-31 11:18] LABS: ALANINE AMINOTRANSFERASE,ALT 22 IU/L (14-63); ALBUMIN 3.7 g/dL (3.4-5.0); ALKALINE PHOSPHATASE 63 U/L (46-116); ASPARTATE AMNIOTRANSFERASE,AST 9 IU/L (15-37); BLOOD UREA NITROGEN,BUN 14 mg/dL (7.0-18.0); CALCIUM 8.6 mg/dL (8.5-10.1); CARBON DIOXIDE,CO2 24.1 mmol/L (21.0-32.0); CHLORIDE,CL 103 mmol/L (98-107); CREATININE 0.9 mg/dL (0.6-1.0); GLUCOSE RANDOM 95 mg/dL (74-106); POTASSIUM,K 4.1 mmol/L (3.5-5.1); PROTEIN TOTAL,TP 7.4 g/dL (6.4-8.2); SODIUM,NA 138 mmol/L (136-145)
[2023-01-31 11:19] LABS: ESTIMATED GFR 78 mL/min (>60)
[2023-01-31 12:13] VITALS: BP 147/103; PULSE 81
== END 2023-01-31 12:24 | disposition home or self-care (01) ==
LOC: MW.ED 09:20
DX: G43.909 Migraine, unspecified, not intractable, without status migrainosus (principal); Z20.822 Contact with and (suspected) exposure to COVID-19; Z91.041 Radiographic dye allergy status; Z91.018 Allergy to other foods; E78.00 Pure hypercholesterolemia, unspecified; J45.909 Unspecified asthma, uncomplicated; Z79.51 Long term (current) use of inhaled steroids; Z79.899 Other long term (current) drug therapy; Z86.16 Personal history of COVID-19
CPT/HCPCS: 36415; 70450; 80053; 81003; 84484; 85025; 87635; 93005; 96365; 96375; 99284; A9270; J1200; J3475; J3490; J7030; U0002

== ENCOUNTER 2023-08-06 20:45 | Emergency (ER) | payer SELFPAY | END 2023-08-06 22:52 | disposition left against medical advice (07) | LOC: MW.ED 20:45 | DX: Z53.21 Procedure and treatment not carried out due to patient leaving prior to being seen by health care provider (principal) ==

== ENCOUNTER 2023-09-25 19:22 | Emergency (ER) | payer SELFPAY ==
[2023-09-25] MEDS ORDERED: Sodium Chloride 0.9% 1,000 ML IV STA (20:25)
[2023-09-25] MEDS ORDERED: Sodium Chloride 0.9% 10 ML Syringe FLUSH PRN (20:27)
[2023-09-25] MEDS ORDERED: Sodium Chloride 0.9% 2.5 ML Syringe FLUSH PRN (20:27)
[2023-09-25 20:54] LABS: BASOPHILS ABSOLUTE AUTO 0.07 K/uL (0.00-0.20); BASOPHILS PERCENT AUTO 0.4 % (0.0-1.0); EOSINOPHILS ABSOLUTE AUTO 0.46 K/uL (0.00-0.45); EOSINOPHILS PERCENT AUTO 2.4 % (0.0-6.0); HEMATOCRIT 37.4 % (37.0-47.0); HEMOGLOBIN 13.5 g/dL (12.0-16.0); IMMATURE GRAN PERCENT AUTO 0.5 % (0.0-0.4); LYMPHOCYTES ABSOLUTE AUTO 3.35 K/uL (1.00-4.80); LYMPHOCYTES PERCENT AUTO 17.4 % (24.0-44.0); MEAN CORPUSCULAR HEMOGLOBIN 32.8 pg (28.0-32.0); MEAN CORPUSCULAR HGB CONC 36.1 g/dL (32.0-36.0); MEAN CORPUSCULAR VOLUME 90.8 fL (83.0-99.0); MEAN PLATELET VOLUME 9.2 fL (9.4-12.3); MONOCYTES ABSOLUTE AUTO 1.22 K/uL (0.00-0.80); MONOCYTES PERCENT AUTO 6.3 % (0.0-8.0); NEUTROPHILS ABSOLUTE AUTO 14.07 K/uL (1.80-7.70); PLATELET COUNT,PLT 321 K/uL (150-400); RED BLOOD CELL COUNT 4.12 M/uL (4.10-5.30); WHITE BLOOD CELL COUNT,WBC 19.27 K/uL (3.9-11.3)
[2023-09-25 21:16] LABS: A/G RATIO 0.6 (0.9-1.6); ALBUMIN 2.9 g/dL (3.4-5.0); BILIRUBIN TOTAL 0.6 mg/dL (0.2-1.0); CALCIUM 8.7 mg/dL (8.5-10.1); CARBON DIOXIDE,CO2 26.2 mmol/L (21.0-32.0); CREATININE 1.1 mg/dL (0.6-1.0); EST CRCL DRUG DOSING (CG) 48.39 mL/min; POTASSIUM,K 3.3 mmol/L (3.5-5.1); PROTEIN TOTAL,TP 7.5 g/dL (6.4-8.2)
[2023-09-25] MEDS ORDERED: Doxycycline 100 MG Cap PO ONE (21:23)
[2023-09-25 21:38] LABS: CORONAVIRUS COVID-19 NAA NEGATIVE (NEGATIVE); INFLUENZA A NAA NEGATIVE (NEGATIVE); INFLUENZA B NAA NEGATIVE (NEGATIVE); RESPIRATORY SYNCYTIAL VIR NAA NEGATIVE (NEGATIVE)
[2023-09-25 21:59] VITALS: BP 149/83; PULSE 99
== END 2023-09-25 21:58 | disposition home or self-care (01) ==
LOC: MW.ED 19:22
DX: J18.9 Pneumonia, unspecified organism (principal); E78.00 Pure hypercholesterolemia, unspecified; J45.909 Unspecified asthma, uncomplicated; Z79.899 Other long term (current) drug therapy; Z91.018 Allergy to other foods; Z91.048 Other nonmedicinal substance allergy status
CPT/HCPCS: 0241U; 36415; 71046; 80053; 85025; 96360; 99284; A9270; J3490; J7030; 99283

== ENCOUNTER 2024-04-10 20:52 | Emergency (ER) | payer MEDICAID ==
[2024-04-10 21:33] LABS: BASOPHILS ABSOLUTE AUTO 0.03 K/uL (0.00-0.20); BASOPHILS PERCENT AUTO 0.3 % (0.0-1.0); EOSINOPHILS ABSOLUTE AUTO 0.13 K/uL (0.00-0.45); EOSINOPHILS PERCENT AUTO 1.4 % (0.0-6.0); HEMATOCRIT 40.4 % (37.0-47.0); HEMOGLOBIN 14.5 g/dL (12.0-16.0); IMMATURE GRAN ABSOLUTE AUTO 0.01 K/uL (0.00-0.05); IMMATURE GRAN PERCENT AUTO 0.1 % (0.0-0.4); LYMPHOCYTES ABSOLUTE AUTO 3.29 K/uL (1.00-4.80); LYMPHOCYTES PERCENT AUTO 34.8 % (24.0-44.0); MEAN CORPUSCULAR HGB CONC 35.9 g/dL (32.0-36.0); MEAN CORPUSCULAR VOLUME 91.8 fL (83.0-99.0); MEAN PLATELET VOLUME 9.3 fL (9.4-12.3); MONOCYTES PERCENT AUTO 8.5 % (0.0-8.0); NEUTROPHILS PERCENT AUTO 54.9 % (41.0-71.0); PLATELET COUNT,PLT 300 K/uL (150-400); WHITE BLOOD CELL COUNT,WBC 9.46 K/uL (3.9-11.3)
[2024-04-10] MEDS: Sodium Chloride 0.9% 1,000 ML IV STA (21:33)
[2024-04-10] MEDS: Sodium Chloride 0.9% 10 ML Syringe FLUSH PRN (21:34)
[2024-04-10] MEDS: Sodium Chloride 0.9% 2.5 ML Syringe FLUSH PRN (21:34)
[2024-04-10] MEDS: Ondansetron 4 MG/2 ML SDV IVPUSH ONE (21:41)
[2024-04-10 21:42] LABS: APPEARANCE,URINE CLEAR; BILIRUBIN,URINE NEGATIVE (NEGATIVE); COLOR,URINE YELLOW; GLUCOSE,URINE NEGATIVE (NEGATIVE); KETONES,URINE NEGATIVE (NEGATIVE); LEUKOCYTE ESTERASE,URINE NEGATIVE (NEGATIVE); NITRITE,URINE NEGATIVE (NEGATIVE); OCCULT BLOOD,URINE NEGATIVE (NEGATIVE); PH,URINE 6.5 (5.0-8.0); PROTEIN,URINE NEGATIVE (NEGATIVE); UROBILINOGEN,URINE 0.2 EU/dL (<2.0)
[2024-04-10 21:59] LABS: ALBUMIN 3.8 g/dL (3.4-5.0); BILIRUBIN TOTAL 1.3 mg/dL (0.2-1.0); CALCIUM 9.8 mg/dL (8.5-10.1); CARBON DIOXIDE,CO2 29.7 mmol/L (21.0-32.0); EST CRCL DRUG DOSING (CG) 53.23 mL/min; POTASSIUM,K 3.9 mmol/L (3.5-5.1); PROTEIN TOTAL,TP 7.6 g/dL (6.4-8.2)
[2024-04-10 22:02] LABS: LACTIC ACID 0.4 mmol/L (0.4-2.0)
[2024-04-10] MEDS: Ketorolac 30 MG/ML SDV IVPUSH ONE (22:02)
[2024-04-10 22:10] LABS: CORONAVIRUS COVID-19 NAA NEGATIVE (NEGATIVE); INFLUENZA A NAA NEGATIVE (NEGATIVE); INFLUENZA B NAA NEGATIVE (NEGATIVE); RESPIRATORY SYNCYTIAL VIR NAA NEGATIVE (NEGATIVE)
[2024-04-10] MEDS: Iopamidol 755 MG/ML 500 ML Multipack Bottle IVPUSH ONE (22:30)
[2024-04-10] MEDS: droPERidol 5 MG/2 ML SDV IVPUSH ONE (22:45)
[2024-04-10 23:34] VITALS: BP 120/85; PULSE 84
== END 2024-04-10 23:34 | disposition home or self-care (01) ==
LOC: MW.ED 20:52
DX: R10.32 Left lower quadrant pain (principal); R11.10 Vomiting, unspecified; J45.909 Unspecified asthma, uncomplicated; E78.00 Pure hypercholesterolemia, unspecified; Z79.899 Other long term (current) drug therapy; Z91.018 Allergy to other foods; Z91.048 Other nonmedicinal substance allergy status; Z75.8 Other problems related to medical facilities and other health care
CPT/HCPCS: 0241U; 36415; 74177; 80053; 81003; 81025; 83605; 83690; 85025; 96361; 96374; 96375; 99284; J1790; J1885; J2405; J3490; J7030; Q9967

== ENCOUNTER 2025-02-24 09:38 | Day surgery (SDC) | payer MEDICAID ==
[~2025-02-24 09:38] MED LIST: Sodium Chloride 0.9% 10 ML Syringe FLUSH PRN; Sodium Chloride 0.9% 2.5 ML Syringe FLUSH PRN
[2025-02-24] MEDS: Lactated Ringers 1,000 ML IV SCH (10:05)
[2025-02-24] MEDS ORDERED: fentaNYL 100 MCG/2 ML SDV ONE (10:42)
[2025-02-24] MEDS ORDERED: Ondansetron 4 MG/2 ML SDV ONE (10:43)
[2025-02-24] MEDS ORDERED: Ketamine HCL/NACL, ISO-OSM 50 MG/5 ML Syringe ONE (10:43)
[2025-02-24] MEDS ORDERED: propofoL 500 MG/50 ML 50 ML ONE (11:23)
[2025-02-24 12:44] VITALS: BP 112/79; PULSE 71
== END 2025-02-24 11:53 | disposition home or self-care (01) ==
LOC: MW.SDS 09:38
PROVIDERS: ATTEND Surgery
DX: D12.3 Benign neoplasm of transverse colon (principal); E66.9 Obesity, unspecified; F17.290 Nicotine dependence, other tobacco product, uncomplicated; Z88.8 Allergy status to other drugs, medicaments and biological substances; Z91.09 Other allergy status, other than to drugs and biological substances; Z68.30 Body mass index [BMI] 30.0-30.9, adult; Z91.018 Allergy to other foods; Z79.899 Other long term (current) drug therapy
CPT/HCPCS: 43239; 45380; J2003; J2405; J2704; J3010; J7120; 00813; J3490

== ENCOUNTER 2025-04-25 03:51 | Emergency (ER) | payer MEDICAID ==
[2025-04-25 04:00] VITALS: BP 136/86; PULSE 94
[2025-04-25] MEDS: Alum Hydrox/Mag Hydrox/Simeth 15 ML, Lidocaine 2% 5 ML PO ONE (04:19)
[2025-04-25] MEDS: cefTRIAXone 1 GM in Lidocaine 1% 2.1 ML IM ONE (04:24)
== END 2025-04-25 04:34 | disposition home or self-care (01) ==
LOC: MW.ED 03:51
DX: J02.9 Acute pharyngitis, unspecified (principal); E78.00 Pure hypercholesterolemia, unspecified; Z88.8 Allergy status to other drugs, medicaments and biological substances; Z79.899 Other long term (current) drug therapy
CPT/HCPCS: 96372; 99283; A9270; J0696; J1100; J2003; J3490